=== PATIENT | male | born 1950 | race Caucasian/White ===

== ENCOUNTER → 2019-07-21 | Outpatient (CLI) | payer MEDICARE, OTHER ==
--- NOTE | 2019-07-21 13:27 | Diagnostic Imaging Report ---
TECHNIQUE: Computed tomography imaging of the LEFT KNEE was performed WITHOUT injected contrast. Dose modulation, iterative reconstruction, and/or weight based adjustment of the mA/kV was utilized to reduce the radiation dose to as low as reasonably achievable. HISTORY: Knee pain COMPARISON: None available. FINDINGS: No fracture or malalignment. No lytic or blastic lesion. No osteonecrosis. No joint effusion. Mild narrowing within the medial compartment with sclerosis. Small extensor mechanism enthesophyte. IMPRESSION: 1. No acute osseous abnormality 2. Mild medial compartment knee degenerative arthrosis Signed by: Dr. Volodymyr Flores M.D. on 07/21/2019 1:24 PM
--- NOTE | 2019-07-21 14:46 | Diagnostic Imaging Report ---
TECHNIQUE: Computed tomography imaging of the LEFT ankle and foot was performed WITHOUT injected contrast. Dose modulation, iterative reconstruction, and/or weight based adjustment of the mA/kV was utilized to reduce the radiation dose to as low as reasonably achievable. HISTORY: Pain, evaluate for fracture COMPARISON: None available. FINDINGS: Subacute extra articular transverse fracture of the proximal phalanx of the hallux. Subacute oblique extra articular fracture fifth metatarsal. Subacute intra-articular fracture of the lateral aspect of the cuboid. The Lisfranc alignment is preserved. Healed fractures of the medial and lateral malleolus status post fixation. No lytic or blastic lesion. No osteonecrosis. No ankle joint effusion. IMPRESSION: Subacute extra articular fractures of the proximal phalanx hallux, fifth metatarsal diaphysis, and lateral cuboid Signed by: Dr. Volodymyr Flores M.D. on 07/21/2019 2:43 PM
== END ==
LOC: CT 10:56
PROVIDERS: ATTEND Podiatrist Foot & Ankle Surgery
DX: M25.562 Pain in left knee (principal); M25.572 Pain in left ankle and joints of left foot; S92.412A Displaced fracture of proximal phalanx of left great toe, initial encounter for closed fracture